=== PATIENT | female | born 1995 ===

== ENCOUNTER 2016-12-08 17:45 | Emergency (ER) | payer BC ==
[2016-12-08 17:45] VITALS: BMI 29.6
[2016-12-08 17:54] VITALS: BP 133/92; PULSE 90; RESP 18; TEMP 97.8; O2SAT 100
[2016-12-08 18:47] LABS: BARBITURATES, UR NEGATIVE (NEGATIVE); BENZODIAZEPINES, UR NEGATIVE (NEGATIVE); OPIATES, UR NEGATIVE (NEGATIVE); PHENCYCLIDINE, UR NEGATIVE (NEGATIVE)
--- NOTE | 2016-12-08 19:03 | ED PDOC ---
HPI: Psych/Substance Abuse Time Seen by Provider: 12/08/16 17:59 Chief Complaint (Nursing): Psychiatric Evaluation Chief Complaint (Provider): Anxiety History Per: Patient History/Exam Limitations: no limitations Onset/Duration Of Symptoms: Days Suicide/Self Injury Attempted (Context): None Modifying Factor(s): None Associated Symptoms: Agitation. denies: Suicidal Thoughts, Suicidal Plan Additional Complaint(s): The pt is a 20yo female, no pertinent PMHx, presents to ED for evaluation of anxiety, present for the past week with associated chest tightness. Pt reports today while at [employer], felt anxious, her heart race and felt a sudden need to get out. She reports she has been easily agitated for the past month and states she has had similar symptoms as today but not as severe or frequent. She denies any hx of psych evaluation, also denies any hallucinations, suicidal or homicidal ideation. Pt also denies any drug or alcohol use and present of stressors. She offers no additional medical complaints. PCP: None provided Past Medical History Reviewed: Historical Data, Nursing Documentation, Vital Signs Vital Signs: Last Vital Signs Temp 97.8 F 12/08/16 17:51 Pulse 90 12/08/16 17:51 Resp 18 12/08/16 17:51 BP 133/92 H 12/08/16 17:51 Pulse Ox 100 12/08/16 17:51 - Medical History PMH: Denies: Diabetes, Hepatitis, HIV, HTN, Seizures, Sexually Transmitted Disease - Surgical History Surgical History: No Surg Hx - Family History Family History: States: Unknown Family Hx - Social History Current smoker - smoking cessation education provided: No Alcohol: None Drugs: Denies - Home Medications Home Medications: Ambulatory Orders Medication Instructions Recorded Ondansetron [Zofran] 4 mg PO Q6H PRN #5 tab 02/04/16 - Allergies Allergies/Adverse Reactions: Allergies Allergy/AdvReac Type Severity Reaction Status Date / Time No Known Allergies Allergy Verified 12/08/16 17:51 Review of Systems ROS Statement: Except As Marked, All Systems Reviewed And Found Negative Cardiovascular: Positive for: Other (chest tightness) Psych: Positive for: Anxiety. Negative for: Suicidal ideation, Other ( hallucinations) Physical Exam - Reviewed Nursing Documentation Reviewed: Yes Vital Signs Reviewed: Yes - Physical Exam Appears: Positive for: Well, Non-toxic, No Acute Distress Head Exam: Positive for: ATRAUMATIC, NORMAL INSPECTION, NORMOCEPHALIC Skin: Positive for: Normal Color Eye Exam: Positive for: Normal appearance Neck: Positive for: Normal Cardiovascular/Chest: Positive for: Regular Rate, Rhythm Respiratory: Positive for: CNT, Normal Breath Sounds Neurologic/Psych: Positive for: Alert, Oriented, Mood/Affect (anxious affect) - ECG O2 Sat by Pulse Oximetry: 100 Medical Decision Making Medical Decision Making: Time: 1804 Impression: Anxiety, crisis evaluation Plan: -- Crisis evaluation -- ED Urine dipstick -- UPreg Time: 2025 Pt seen and evaluated by crisis, clear for discharge. Given referral for [facility] for follow up. Diagnosis: Unspecified anxiety, adjustment disorder. Scribe Attestation: Documented by Mali Mitchell acting as a scribe for Zari Limon MD. Provider Attestation: All medical record entries made by the Scribe were at my direction and personally dictated by me. I have reviewed the chart and agree that the record accurately reflects my personal performance of the history, physical exam, medical decision making, and the department course for this patient. I have also personally directed, reviewed, and agree with the discharge instructions and disposition. Disposition - Clinical Impression Clinical Impression: Anxiety - Disposition Referrals: [facility] [Outside] Disposition: Routine/Home Disposition Time: 20:26 Condition: GOOD Instructions: Stress (ED), Anxiety (ED)
== END 2016-12-08 20:46 | disposition home or self-care (01) ==
LOC: H.ER 17:45
DX: F41.9 Anxiety disorder, unspecified (principal)
CPT/HCPCS: 81025; 99283; G0480